=== PATIENT | male | born 1960 | race Caucasian/White ===

== ENCOUNTER 2018-04-23 11:36 | Day surgery (SDC) | payer MEDICARE, SELFPAY ==
--- NOTE | 2018-04-23 07:51 | HP.PCM_ITS ---
History and Physical Date of Admission: 04/23/18 HISTORY AND PHYSICAL ? Miguel Angel Griffith 1960 ? REFERRING PHYSICIAN: ??Nicole Kulkarni MD ? CHIEF COMPLAINT: ??colon consult ? HPI: The patient is a 58 year old male referred for endoscopy. ?Miguel Angel notes no history of colon complaints. ?He denies any change in bowel habits, weight changes, blood in stools, black tarry stools or abdominal pain. ?He denies a family history of colon issues. ?The patient ?notes no history of upper GI complaints. ? Miguel Angel has undergone prior endoscopy in 2003, states was not having any abdominal complaints at that time. ?The patient is being seen by me today at the request of Dr. Kulkarni?for my opinion and advice regarding screening colonosco py. ? Patient's past medical history is significant for prostate cancer, hypertension, tobacco use, past history of alcohol dependence, osteoarthritis, bipolar disorder. ?He has been on oxycodone long-term. ?He notes recall from his prior endoscopy procedure. ?He denies any recent alcohol use and is maintained on naltrexone. ? ? PAST MEDICAL HISTORY PAST MEDICAL HISTORY Diagnosis Date ? Alcohol Dependence, in Remission ?11/26/2009 ? Anxiety ? ? Bipolar affective disorder (HCC) ? ? Cancer of prostate (HCC) 2012 ? Compression fracture of lumbar vertebra (HCC) ? ? L3, L4 ? OA (osteoarthritis) ? ? left knee ? Seizure (HCC) ? ? following alcohol withdrawal ? PAST SURGICAL HISTORY PAST SURGICAL HISTORY Procedure Laterality Date ? COLONOSCOP W/ OR W/O [facility] SPEC ? 08/19/03 ? Normal colonoscopy ? PAST SURGICAL HISTORY OF ? 2010 ? left hip replacement ? REMOVAL OF PROSTATE ? 09/20/12 ? ? ? CURRENT MEDICATIONS ? Current Outpatient Prescriptions: peg 3350-Electrolytes (GOLYTELY) 236-22.74-6.74 -5.86 gram suspension Take 4,000 mL by mouth one time only for 1 dose. oxyCODONE ER (OXYCONTIN) 10 mg 12 hr tablet Take 1 tablet by mouth every 12 hours for 28 days.Earliest Fill Date: 02/23/18 naltrexone (TREXAN) 50 mg tablet TAKE 1 TABLET DAILY for relapse prevention amitriptyline (ELAVIL) 50 mg tablet Take 1 tablet by mouth daily at bedtime. ARIPiprazole (ABILIFY) 20 mg tablet Take 1 tablet by mouth once daily. hydrOXYzine pamoate (VISTARIL) 25 mg capsule Take 1 capsule by mouth every 4 hours as needed. PARoxetine (PAXIL) 40 mg tablet TAKE 1 AND 1/2 TABLETS BY MOUTH EVERY DAY metoprolol tartrate, short acting, (LOPRESSOR) 25 mg tablet Take 1 tablet by mouth twice daily. Cholecalciferol, Vitamin D3, 5,000 unit cap Taking a supplement with calcium and Vitamin D3 (?dose) COMPOUNDED PRESCRIPTION Hood Tripletty Knee brace--Reaction with hinges For left knee 715.96 Left knee DJD ? No current facility-administered medications for this visit. ? ALLERGIES: Ultram [Tramadol Hcl]; Amoxicillin; Klonopin [Clonazepam]; Penicillin G ? PERSONAL HISTORY: SOCIAL HISTORY Social History ??Marital status: Single ?Spouse name: ?Years of education: ?Number of children: ? Social History Main Topics ??Smoking status: Current Every Day Smoker ?Packs/day: 1.00 ?Years: 35.00 ?Types: Cigarettes ??Smokeless tobacco: Never Used ?Comment: Pt has cut back to 5 cigarettes daily. ??Alcohol use: No ?Comment: none since 10/2011 ??Drug use: No ? FAMILY HISTORY: FAMILY HISTORY FAMILY HISTORY Problem Relation Age of Onset ? Diabetes Mother ? ? Cancer Mother ?lung ? ? REVIEW OF SYMPTOMS: ??The review of systems data was entered by the nurse and reviewed by me ? Nursing Notes: Alice Owen LPN ?03/12/2018 ?4:20 PM ?Signed REVIEW OF SYSTEMS: ?General:???The patient denies fatigue, denies weight loss, denies weight gain, denies feeling hot, and denies feelings of cold. ?Eyes: ?The patient denies glaucoma, denies eye injury/surgery, wears glasses or contacts. ?Ear/Nose/Throat: ?The patient denies allergies, denies hayfever, denies ear infections, and denies bloody noses. ?Cardiovascular: ?The patient denies chest pain, denies heart disease, NOTES high blood pressure,denies cardiac stent, denies prior heart attack, denies irregular heart beat, denies high cholesterol, ?denies poor circulation, denies heart failure, other cardiac issues, denies claudication, denies cold feet, denies peripheral arterial stent. ?Respiratory: ?The patient denies tuberculosis, denies pneumonia, denies frequent cough, denies pulmonary embolism, denies shortness of breath, and denies coughing up blood. ?Gastrointestinal: ?The patient denies difficulty swallowing, denies acid reflux, denies ulcers, denies vomiting, denies jaundice/hepatitis, denies gallbladder problems, denies black or tarry stools, denies hemorrhoids, denies bleeding from rectum, denies diverticulitis, denies constipation, denies diarrhea, denies loss of stool control, and denies hernias. ?Kidney/Bladder: ?The patient denies kidney stones, NOTES urine infections, and denies bloody urine. ?Skin: ?The patient denies a history of skin cancer, denies bleeding/changing moles, and denies a history of skin rash. ?Neurologic: ?The patient denies a history of epilepsy/convulsions, denies headaches, denies head/spinal injuries, and denies stroke/TIA. ?Psychiatric: ?The patient denies psychiatric medications, NOTES depression, and denies voices, denies substance abuse. ?Endocrine: ?The patient denies thyroid disorders, denies diabetes, and denies hormonal problems. ?Hematologic: ?The patient denies a history of bruising, denies bleeding, and denies anemia, denies blood clots. ?Infections: ?The patient NOTES a history of measles and mumps, denies rheumatic fever, and denies sexually transmitted diseases. ?Musculoskeletal: ?The patient denies back pain/injury, denies back problems, NOTES sciatica, denies knee/foot trouble, denies arthritis, or denies gout. ? ? When was patient's last Mammogram screening? N/A ? ?Last Colonoscopy: ?None ? Alice Owen LPN? I have confirmed and edited as necessary, the PFSH and ROS obtained by others. ? ? PHYSICAL EXAMINATION: ? General: ?The patient is 58 year old male, well nourished, well hydrated in no acute distress. ?The patient is oriented to time, place, and person. ? VITALS: Blood pressure 162/78, pulse 84, weight 91.6 kg (202 lb).?Body mass index is 27.4 kg/m?.? ? HEENT: ?Normal cephalic, ataumatic, pupils are equally round, sclera are anicteric, mucous membranes are moist, oropharynx is clear. ?Neck has no masses, asymmetry or lymphadenopathy. ? Respiratory: ?Clear to auscultation and percussion. ?Normal respiratory excursion and pattern. ? Cardiac: ?Examination is regular rate and rhythm. ? Abdominal exam: ?Soft, nontender, ?with no palpable masses. ?No hepatosplenomegaly. ?No palpable hernias. ? Rectal exam: exam deferred ? Extremities: ?no clubbing, cyanosis or edema. ?No adenopathy. ? Other: ? LABORATORY VALUES: As Noted ? RADIOLOGIC STUDIES: ?As Noted ? ? Assessment ? IMPRESSION: encounter for screening colonoscopy ? PLAN: ?We will plan for screening colonoscopy with MAC.???We discussed the risks and benefits of the planned endoscopy. ?I have informed the patient that complications can occur including failure to complete the endoscopy and perforation. ?The patient had the opportunity to ask questions concerning the planned endoscopy. ?My staff has also explained the procedure to the patient in understandable terms and has given the patient printed material concerning the procedure. ?The patient freely consents to surgery. ? I plan to use golytely bowel preparation for endoscopy ? The patient takes prescription medications which I feel decrease the chance of successful sedation. ?I therefore plan for monitored anesthetic care.??Patient is requesting this be done at [facility] as he will be having an elderly family member transporting him that day ? Diagnoses: (Z12.11) Encounter for screening for malignant neoplasm of colon ?(primary encounter diagnosis) ? My findings have been communicated to Dr. Kulkarni?via shared medical record. ?This note will be forwarded to Dr. Nicole Kulkarni MD. ?? Return to Clinic: The patient is instructed to follow-up with me 1 week post operatively. ? Marixa Monge PA-C
[2018-04-23 11:56] VITALS: BP 127/87; PULSE 99; RESP 16; TEMP 37.2; O2SAT 98; BMI 27.3
--- NOTE | 2018-04-23 13:00 | COLBX_PTH ---
PATIENT: ISAÍAS GILLETTE LOC: EN U#:[id number] AGE/SX: 58/M ROOM: RE04/23/[address]: Dr. Toñito Lombardi MD : 1960 BED: DIS: 04/23/2018 SPEC #: [id number] RECD: 04/23/18 16:12 STATUS: TONY MELGARKiara #: [id number] GILLIAN: 04/23/18 13:[address]: Toñito Lombardi DEPT: SURGICAL PATHOLOGY RECD BY: Jorden Colon ENTERED: 04/24/18 10:09 SP TYPE: COLON BX BHARATH DR: Dr. Nicole Kulkarni MD Tissues: A - Transverse colon B - Sigmoid colon biopsy Procedures: Surgery Specimen Level IV HEADER OPERATION: Colonoscopy (MAC) PRE-OP DIAGNOSIS: Screening colonoscopy TISSUE SUBMITTED: A. Polyp proximal transverse, B. Polyp sigmoid colon MICROSCOPIC DIAGNOSIS A. Proximal transverse colon polyp, biopsy: Cauterized fragments of colonic mucosa with hyperplastic change. B. Sigmoid colon polyp, biopsy: Inflammatory polyp. AM:dariana 04/25/18 MICROSCOPIC DESCRIPTION Slides are reviewed. GROSS DESCRIPTION A - Received in fixative is one container labeled with the patient's name and designated polyp proximal transverse. The specimen consists of multiple irregular fragments of carrizales soft tissue mixed with fecal material that in aggregate measure 2 x 0.5 x 0.1 cm. The specimen predominantly consists of fecal material. The entire specimen is submitted in one cassette. B - Received in fixative is one container labeled with the patient's name and designated sigmoid colon polyp. The specimen consists of a pink-red polyp measuring 1 x 0.6 x 0.6 cm. The presumed base is inked. The polyp is bisected and submitted entirely in one cassette. / SJ:dariana 04/24/18 TC:5 CPT: 53400 x2
[2018-04-23 14:51] VITALS: BP 127/87; BP 85/57; PULSE 81; RESP 16; TEMP 36.1; O2SAT 92
[2018-04-23 14:56] VITALS: BP 127/87; BP 89/58; PULSE 77; RESP 16; O2SAT 95
--- NOTE | 2018-04-23 14:56 | OP.ENDO_ITS ---
Patient Name: Miguel Angel Griffith Procedure Date: 04/23/2018 7:36 AM Date of : 1960 Age: 58 Procedure: Colonoscopy Indications: Screening for colorectal malignant neoplasm Providers: Toñito Lombardi MD Medicines: Monitored Anesthesia Care Patient Profile: This is a 58 year old male. Refer to note in patient chart for documentation of history and physical. Last Colonoscopy: more than 10 years ago. Complications: No immediate complications. Procedure: Pre-Anesthesia Assessment: - Prior to the procedure, a History and Physical was performed, and patient medications and allergies were reviewed. The patient is competent. The risks and benefits of the procedure and the sedation options and risks were discussed with the patient. All questions were answered and informed consent was obtained. Patient identification and proposed procedure were verified by the physician and the nurse in the procedure room. Mental Status Examination: alert but confused. Airway Examination: normal oropharyngeal airway and neck mobility. Respiratory Examination: clear to auscultation. CV Examination: normal. Prophylactic Antibiotics: The patient does not require prophylactic antibiotics. Prior Anticoagulants: The patient has taken no previous anticoagulant or antiplatelet agents. ASA Grade Assessment: II - A patient with mild systemic disease. After reviewing the risks and benefits, the patient was deemed in satisfactory condition to undergo the procedure. The anesthesia plan was to use monitored anesthesia care (MAC). Immediately prior to administration of medications, the patient was re-assessed for adequacy to receive sedatives. The heart rate, respiratory rate, oxygen saturations, blood pressure, adequacy of pulmonary ventilation, and response to care were monitored throughout the procedure. The physical status of the patient was re-assessed after the procedure. After I obtained informed consent, the scope was passed under direct vision. Throughout the procedure, the patient's blood pressure, pulse, and oxygen saturations were monitored continuously. The pediatric colonoscope was introduced through the anus and advanced to the cecum, identified by the appendiceal orifice, ileocecal valve and palpation. The colonoscopy was performed without difficulty. The patient tolerated the procedure well. The quality of the bowel preparation was good. Scope In: 2:21:55 PM Scope Withdrawal Time 0 hours 19 minutes 28 seconds Scope Out: 2:45:32 PM Total Procedure Duration Time 0 hours 23 minutes 37 seconds Findings: The digital exam findings include surgically absent prostate. Multiple small-mouthed diverticula were found in the ascending colon and cecum. Two sessile polyps were found in the sigmoid colon and transverse colon. The polyps were medium in size. These polyps were removed with a hot snare. Resection and retrieval were complete. The exam was otherwise without abnormality. The retroflexed view of the distal rectum and anal verge was normal and showed no anal or rectal abnormalities. Impression: - A surgically absent prostate found on digital exam. - Diverticulosis in the ascending colon and in the cecum. - Two medium polyps in the sigmoid colon and in the transverse colon, removed with a hot snare. Resected and retrieved. - The examination was otherwise normal. - The distal rectum and anal verge are normal on retroflexion view. Recommendation: - Discharge patient to home. - Resume previous diet. - Continue present medications. - Repeat colonoscopy in 3 years for surveillance of multiple polyps. - Return to physician assistant pastry chef in 1 week. Procedure Code(s): --- Professional --- 68119, Colonoscopy, flexible; with removal of tumor(s), polyp(s), or other lesion(s) by snare technique CPT copyright 2017 [employer]. All rights reserved. The codes documented in this report are preliminary and upon medical biller/coder review may be revised to meet current compliance requirements. Toñito Lombardi MD 04/23/2018 2:56:17 PM This report has been signed electronically. Number of Addenda: 0 Note Initiated On: 04/23/2018 7:36 AM
[2018-04-23 15:01] VITALS: BP 127/87; BP 97/55; PULSE 78; RESP 16; O2SAT 95
[2018-04-23 15:06] VITALS: BP 113/79; BP 127/87; PULSE 75; RESP 16; O2SAT 96
[2018-04-23 15:13] VITALS: BP 127/87
== END 2018-04-23 15:23 | disposition home or self-care (01) ==
LOC: EN 11:37 → AC 11:40
PROVIDERS: Family Provider Internal Medicine; PCP Internal Medicine; Referring Provider Surgery; Visit Provider Surgery
PROC: 0DJD8ZZ Inspection of Lower Intestinal Tract, Via Natural or Artificial Opening Endoscopic (ICD-10-PCS; CPT 45378; principal; 2018-04-23 12:55)
DX: Z12.11 Encounter for screening for malignant neoplasm of colon (principal); K63.5 Polyp of colon; K51.40 Inflammatory polyps of colon without complications; K57.30 Diverticulosis of large intestine without perforation or abscess without bleeding; I10 Essential (primary) hypertension; M19.90 Unspecified osteoarthritis, unspecified site; F31.9 Bipolar disorder, unspecified; F41.9 Anxiety disorder, unspecified; F32.9 Major depressive disorder, single episode, unspecified; Z85.46 Personal history of malignant neoplasm of prostate; Z87.898 Personal history of other specified conditions; Z92.3 Personal history of irradiation; Z90.79 Acquired absence of other genital organ(s); Z79.891 Long term (current) use of opiate analgesic; Z79.899 Other long term (current) drug therapy; F17.210 Nicotine dependence, cigarettes, uncomplicated
CPT/HCPCS: 45385; 88305; J7120

== ENCOUNTER 2019-08-08 10:07 | Emergency (ER) | payer MEDICARE, SELFPAY ==
[2019-08-08 10:08] VITALS: BP 163/87; PULSE 96; PULSE 97; RESP 18; RESP 20; TEMP 36.4; O2SAT 99; BMI 24.3
--- NOTE | 2019-08-08 10:19 | CT_ITS ---
STUDY: CT ABDOMEN AND PELVIS WITH CONTRAST REASON FOR EXAM: Male, 59 years old. MIDSTERNAL CHEST PAIN -- PT STATES HE FEELS LUMP AT DISTAL STERNUM -- HX-PROSTATE CA RADIATION DOSAGE (If Supplied By Facility): CTDIvol = ( 13.49 ) mGy, DLP = ( 1236.18 ) mGycm TECHNIQUE: Transaxial images were obtained from the dome of the diaphragm to the symphysis pubis without oral contrast. IV 100mL Isovue-370 was administered. Sagittal and coronal images were reconstructed. Individualized dose optimization techniques were used for this CT. COMPARISON: None. FINDINGS: Lung bases: See dedicated chest CT scan. Heart: See dedicated chest CT. Liver: Punctate hepatic hypodensities too small to characterize (axial image 28 series 3). Hepatic steatosis. Gallbladder/biliary ducts: Unremarkable. Pancreas: Unremarkable. Spleen: Unremarkable. Adrenal glands: Unremarkable. Kidneys/ureters/bladder: Exophytic left renal lesion measuring greater than simple cyst and 2.1 cm (axial image 48 series 2). Otherwise bilateral symmetric renal parenchymal enhancement. Nondistended ureters. Normal urinary bladder. Prostate: Prostatectomy. Pelvic lymph node dissection. Large bowel/small bowel: No acute large bowel or small bowel process. Appendix: Unremarkable (axial image 72 series 3). Gastroesophageal junction/stomach: Unremarkable. Retroperitoneum/lymph nodes: No intra-abdominal free air. No ascites. Shoddy para-aortic lymph nodes. Vascular: Vascular calcifications. No aneurysm. Osseous structures: Left hip arthroplasty. No acute cortical destruction. Chronic appearing L3 and L4 vertebral body fractures. Nonspecific punctate right iliac sclerosis (axial image 77 series 3). Subcutaneous/soft tissues: No acute process. Tiny fat-containing umbilical hernia. CT/Abdomen/Pelvis W IV Cont ONLY IMPRESSION: No acute intra-abdominal/pelvic findings Exophytic 2.1 cm left renal lesion measuring greater than simple cyst (follow-up nonemergent ultrasound and/or MRI) Chronic-appearing L3 and L4 vertebral body fractures Nonspecific punctate right iliac sclerosis (statistically benign; however given history of prostate cancer correlate PSA) Prostate resection with pelvic lymph node dissection Electronically Signed: Santy Milton DO at 12:01 EDT Tel , Service support ,
--- NOTE | 2019-08-08 10:19 | EKG12_ITS ---
Test Reason : SOB/CP Blood Pressure : / mmHG Vent. Rate : 089 BPM Atrial Rate : 089 BPM P-R Int : 150 ms QRS Dur : 088 ms QT Int : 370 ms P-R-T Axes : 049 072 066 degrees QTc Int : 450 ms Normal sinus rhythm Normal ECG Confirmed by JULIO CESAR AWAN, GERONIMO ([id number]), book editor DANNI ARMENTA ([id number]) on 08/09/2019 1:07:40 PM Referred By: DAVID Confirmed By:MARY HARRELL MD
--- NOTE | 2019-08-08 10:20 | CT_ITS ---
STUDY: CTA CHEST REASON FOR EXAM: Male, 59 years old. MIDSTERNAL CHEST PAIN -- PT STATES HE FEELS LUMP AT DISTAL STERNUM -- HX-PROSTATE CA RADIATION DOSAGE (If Supplied By Facility): CTDIvol = ( 13.49 ) mGy, DLP = ( 1236.18 ) mGycm TECHNIQUE: The examination was performed with the intravenous administration of 100CC ISOVUE 370. Post-processing of the angiographic images was performed, with multiplanar reformation and 3D reconstruction. Individualized dose optimization techniques were used for this CT. COMPARISON: None. FINDINGS: HEART: Normal heart size. No significant coronary artery disease. Minimal fluid within the pericardial sleeve. AORTA/GREAT VESSELS: No dissection. No aneurysm. No significant vascular calcifications. PULMONARY ARTERIES: No acute pulmonary embolism. No hypertension. LUNGS/AIRWAYS: Mild COPD/emphysema. Left upper lobe 7 mm nodule (coronal image 147 series 601). Mild cystic/bullous changes. No pneumonia. No lung mass. Central airways patent. Subtle minimal right middle lobe airspace disease (axial image 85 series 2). PLEURA: No pleural effusion. No pneumothorax. MEDIASTINUM/THYROID: Normal thyroid. No pathologically enlarged lymph nodes. No pneumomediastinum. SOFT TISSUES: No acute process. Gynecomastia. OSSEOUS STRUCTURES: Degenerative features. No acute process. Chronic left rib fracture (axial image 77 series 2). Distal sternum projects anteriorly without acute abnormality (sagittal image 174 series 602). UPPER ABDOMEN/ESOPHAGUS: Normal esophagus. Please see dedicated abdominal CT scan. CT/CTA Chest W/WO Contrast IMPRESSION: Distal sternum projects anteriorly without acute abnormality No acute pulmonary embolism, aortic aneurysm or dissection No pneumonia, pleural effusion or pneumothorax COPD/emphysema Left upper lobe 7 mm nodule, follow-up as per below: The Fleischner society pulmonary nodule recommendations are usually for follow-up and management of nodules smaller than 8 mm. Nodule size > 6 - 8 mm high risk patients: initial follow-up CT at 3 - 6 months and then at 9 - 12 and 24 months if no change Electronically Signed: Santy Milton, at 12:09 EDT Tel , Service support ,
--- NOTE | 2019-08-08 10:34 | ED.DCSUM_ITS ---
History of Present Illness Chief Complaint: Shortness of Breath Informant: Patient Onset: Days Context: Gradual Onset Timing: Continuous Current Severity: Moderate Maximum Severity: Moderate Narrative: The patient is a 59-year-old male with history of smoking and metastatic prostate cancer who follows at [facility] and is on Lupron injections, presents to the emergency department increasing abdominal pain, nausea, and chest pain. He states that he had an area on his sternum that is been increasing in size. He states over the past few days, he has felt more dyspneic and has been having pleuritic type chest pain. He is also been having more abdominal pain. He denies any fevers. He denies any chills or sweats. He denies any other systemic complaints. He denies any history of cardiovascular disease. Prior similar symptoms: No Recent Illness/Hospitalization: Yes Past Medical History - Allergies and Home Meds Allergies/Adverse Reactions: Allergies Penicillins Allergy (Verified 08/08/19 10:07) Anaphylaxis tramadol HCl [From Ultram] Allergy (Verified 08/08/19 10:07) [facility] Physician: Nicole Kulkarni MD [Primary Care Provider] - Prior records reviewed: Yes Past Medical History: - Surgical History: noncontributory - Metastatic prostate cancer Smoking Status: Current every day smoker Review of Systems General: Denies: Chills, Fever, Sweats Eyes: Denies: Visual changes - bilaterally, Diplopia ENT: Denies: Rhinorrhea, Sore throat Cardiovascular: Reports: Chest pain. Denies: Palpitations Respiratory: Reports: Dyspnea. Denies: Cough, Dyspnea on exertion Gastrointestinal: Reports: Abdominal pain, Nausea, Vomiting. Denies: Diarrhea, Melena, Hematochezia Genitourinary: Denies: Dysuria, Hematuria, Frequency Musculoskeletal: Denies: Back pain, Extremity Pain Skin: Denies: Rash, Wounds Neurological: Denies: Headache, Weakness, Numbness Physical Exam Vital Signs/Narrative: Vital Signs Temp Pulse Resp BP Pulse Ox 08/08/19 10:08 97.5 F L 96 18 163/87 H 99 Inital Vital Signs reviewed: Yes General: Well nourished, Well developed, No Acute Distress Head: Normocephalic, Atraumatic Eyes: Perrl, EOMI ENT: Moist mucous membranes, No rhinorrhea Neck: Supple, Nontender Cardiovascular: Regular rate, Regular rhythm, No murmurs Respiratory: No distress, CTA bilaterally, Chest nontender Abdomen: Soft, Nondistended, Normal bowel sounds, Tender. Negative for: Guarding, Rebound tenderness Back: Nontender, Normal Inspection Extremities: Nontender, No edema Skin: Normal color, No rash Neurological: Alert, Oriented x3, Cranial nerves II-XII grossly intact, Normal Strength, Normal Sensation Psychological: Normal affect, Normal Mood Diagnostic/Tx/Re-eval Clinical Impression(s) from Imaging Studies Abdomen/Pelvis CT 08/08/19 10:19 IMPRESSION: No acute intra-abdominal/pelvic findings Exophytic 2.1 cm left renal lesion measuring greater than simple cyst (follow-up nonemergent ultrasound and/or MRI) Chronic-appearing L3 and L4 vertebral body fractures Nonspecific punctate right iliac sclerosis (statistically benign; however given history of prostate cancer correlate PSA) Prostate resection with pelvic lymph node dissection Electronically Signed: Santy Milton DO at 12:01 EDT Tel , Service support , Chest CTA 08/08/19 10:20 IMPRESSION: Distal sternum projects anteriorly without acute abnormality No acute pulmonary embolism, aortic aneurysm or dissection No pneumonia, pleural effusion or pneumothorax COPD/emphysema Left upper lobe 7 mm nodule, follow-up as per below: The Fleischner society pulmonary nodule recommendations are usually for follow-up and management of nodules smaller than 8 mm. Nodule size > 6 - 8 mm high risk patients: initial follow-up CT at 3 - 6 months and then at 9 - 12 and 24 months if no change Electronically Signed: Santy Milton DO at 12:09 EDT Tel , Service support , Abnormal Lab Results 08/08/19 08/08/19 08/08/19 10:37 10:37 10:37 WBC 6.8 RBC 4.97 Hgb 14.8 Hct 44.0 MCV 88.5 MCH 29.8 MCHC 33.6 RDW Std Deviation 43.6 RDW Coeff of Narda 13.5 Plt Count 263 MPV 9.0 Immature Gran % (Auto) 0.400 Neut % (Auto) 74.8 H Lymph % (Auto) 17.5 L Mercer % (Auto) 5.7 Eos % (Auto) 1.2 Baso % (Auto) 0.4 Absolute Neuts (auto) 5.1 Absolute Lymphs (auto) 1.19 Nucleated RBC % 0 Sodium 145 Potassium 3.2 L Chloride 111 H Carbon Dioxide 25.0 Anion Gap 9 BUN 13 Creatinine 0.85 Estim Creat Clear Calc 105.24 Est GFR (MDRD) Af Amer 120 Est GFR (MDRD) Non-Af 99 BUN/Creatinine Ratio 15.4 Glucose 98 Lactic Acid 2.2 H* Calcium 8.5 Total Bilirubin 0.30 AST 13 L ALT 22 Alkaline Phosphatase 83 Troponin I < 0.015 Total Protein 7.1 Albumin 3.5 Globulin 3.6 Albumin/Globulin Ratio 1.0 Lipase 305 - Rhythm Strip Rhythm Strip: Sinus Rhythm Rate: 80 Ectopy: None - EKG Initial EKG Interpretation: Sinus Rhythm, No Acute Injury Pattern Prior: Unchanged - Medical Decision Making The patient presents with multiple complaints of various durations. He does have known history of metastatic prostate cancer and is on immune modulators. He states that he is noticed that his sternum had seemed more painful and enlarging. He is also been having abdominal pain is been feeling dyspneic. Met abolic work-up was pursued. EKG demonstrates sinus rhythm without any acute ischemia. Was unchanged from prior. With the patient's history of malignancy, pleuritic pain, dyspnea I do want to rule out pulmonary embolus. The patient was sent for CT of his chest and abdomen. This shows no evidence of pulmonary embolus, pneumonia, pneumothorax, or dangerous intra-abdominal process. He does have lymphadenopathy which I feel is likely secondary from his cancer. With fluids and analgesics, the patient is feeling improved. My suspicion is that this is likely all secondary to his underlying malignancy. I do not suspect a dangerous process. I do feel the patient is safe for outpatient therapy. Impression 1. Dyspnea 2. Diffuse abdominal pain secondary to prostate cancer ED Disposition - Plan for ED Patient: Instructions: ABDOMINAL PAIN, Unkown Cause, (Male) Referrals: Nicole Kulkarni MD [Primary Care Provider] -
[2019-08-08 11:05] LABS: AST(SGOT) 13 U/L (15-37); Alanine Aminotransfer ALT/SGPT 22 U/L (16-61); Albumin, Serum 3.5 g/dL (3.2-5.0); Alkaline Phosphatase 83 U/L (45-117); Anion Gap 9 (5-15); BUN 13 mg/dL (7-18); BUN/Creat Ratio 15.4 RATIO (10-20); Calcium,Total 8.5 mg/dL (8.5-10.1); Chloride 111 mmol/L (98-107); Creatinine, Serum 0.85 mg/dL (0.70-1.30); EST Glomerular Filtration Rate 99 mL/min (>60); Est Glom Filt Rate - Afr Amer 120 mL/min (>60); Estimated Creatinine Clearance 105.24 ml/min; Globulin 3.6 g/dL (2.2-4.2); Glucose 98 mg/dL (74-106); Lipase 305 U/L (73-393); Potassium 3.2 mmol/L (3.5-5.1); Protein, Total 7.1 g/dL (6.4-8.2); Sodium Level 145 mmol/L (136-145)
[2019-08-08 11:13] LABS: Lactic Acid 2.2 mmol/L (0.4-1.9)
[2019-08-08] MEDS: 0.9% Normal Saline 1,000 ML 1000 ML IV (11:14)
[2019-08-08] MEDS: Ondansetron 4 MG/2 ML Vial IV (11:14)
[2019-08-08 11:15] LABS: Absolute Lymphocyte Count 1.19 X10^3/uL (0.83-4.51); Absolute Neutrophil Count 5.1 X10^3/uL (2.0-7.7); Basophil# 0.03 X10^3/uL; Basophil% 0.4 % (0-1); Eosinophil# 0.08 X10^3/uL; Eosinophils% 1.2 % (0-5); Hemoglobin 14.8 g/dL (13.0-16.5); Lymphocyte # 1.19 X10^3/ul (4.0); Lymphocyte % 17.5 % (19-41); Mean Corp Hgb Conc 33.6 g/dL (32-36); Mean Corpuscular Hgb 29.8 pg (27.0-32.0); Mean Corpuscular Volume 88.5 fL (80-94); Monocyte# 0.39 X10^3/uL; Monocyte% 5.7 % (0-10); NRBC Flagged by Analyzer 0 % (0-5); Neutrophil # 5.08 X10^3/uL (2.7-7.7); Neutrophil % 74.8 % (47-70); Platelet Count 263 K/mm3 (150-450); RBC Distribution Width CV 13.5 % (11.6-14.6); RBC Distribution Width SD 43.6 fl (35.1-43.9); Red Blood Count 4.97 M/mm3 (4.6-6.2); White Blood Count 6.8 K/mm3 (4.4-11.0)
[2019-08-08] MEDS: Morphine 4 MG/ML Syringe IV (11:17)
[2019-08-08 11:21] VITALS: BP 145/96; PULSE 76; RESP 16; TEMP 37; O2SAT 98
[2019-08-08] MEDS: HYDROmorphone 1 MG/ML Syringe IV (12:13)
[2019-08-08 12:20] LABS: Bacteria 0 SEEN /hpf (None Seen); Mucous, Urine 0 SEEN /hpf (<or=2+); Red Blood Cells-Urine 0 SEEN /hpf (0-5); White Blood Cells 0 SEEN /hpf (0-5)
[2019-08-08 12:25] LABS: Color, Urine Yellow (Yellow); Glucose, Dipstick Normal (Normal); Ketone-Dipstick Negative (Negative); Leukocyte Esterase-Dipstick Negative /ul (Negative); Nitrite-Dipstick Negative (Negative); Occult Blood-Urine Negative /ul (Negative); Protein-Dipstick Negative (Negative); Specific Gravity, Urine 1.005 (1.002-1.030); Urine Bilirubin Dipstick Negative (Negative); Urine Clarity Clear (Clear); Urine Urobilinogen Normal (Normal)
[2019-08-08 12:47] LABS: Squamous Epithelial Cells - UA 0-5 SEEN /hpf (0-5)
[2019-08-08] MEDS: 0.9% Normal Saline 1,000 ML 999 ML IV (12:47)
[2019-08-08 13:53] VITALS: BP 127/82; PULSE 72; RESP 18; O2SAT 97
[2019-08-08 14:42] LABS: Reflex Lactate? Y
== END 2019-08-08 13:54 | disposition home or self-care (01) ==
LOC: ED 10:33
PROVIDERS: Emergency Provider Emergency Medicine; PCP Internal Medicine
DX: R06.00 Dyspnea, unspecified (principal); R10.84 Generalized abdominal pain; C61 Malignant neoplasm of prostate; R11.2 Nausea with vomiting, unspecified; N28.89 Other specified disorders of kidney and ureter; R91.1 Solitary pulmonary nodule; Z79.899 Other long term (current) drug therapy; F17.200 Nicotine dependence, unspecified, uncomplicated
CPT/HCPCS: 71275; 74177; 80053; 81001; 83605; 83690; 84484; 85025; 93005; 96361; 96374; 96375; 99285; J7030; Q9967; A4216; J2405